=== PATIENT | male | born 1980 | race Caucasian/White ===

== ENCOUNTER 2022-08-11 15:25 | Emergency (ER) | payer OTHER, SELFPAY ==
[2022-08-11 15:37] VITALS: BP 144/88; PULSE 74; RESP 20; TEMP 36.9; O2SAT 99; BMI 25.0
[2022-08-11 17:28] VITALS: BP 133/89; PULSE 60; RESP 16; O2SAT 98
--- NOTE | 2022-08-12 04:07 | ED_ITS ---
History of Present Illness General Chief Complaint: Epistaxis/Nosebleed Stated Complaint: nose bleed Time Seen by Provider: 08/11/22 17:15 History of Present Illness HPI Narrative: 41-year-old man presenting to the emergency department with recurrent bleeding every 4-5 hours from the left nare over the last 30 hours or so beginning upon waking Thursday morning. Is 2 weeks status post turbinate is shaving/reduction and sinus ballooning. Nasal packing was removed already on day 2. He says he was noted to have scab formation in the left upper outer in areas on week ago follow-up. Has not had a fever. Not really any pain though there is some burning sensation in outer left nares as noted. He is not short of breath not lightheaded. Just chewing for example something like crackers he will feel a pop and then things will start bleeding. Has managed to get bleeding generally under control on his own spraying Afrin and applying pressure. Bled again shortly before arrival here. Admits not feeling active bleeding by the time I am able to see him. No historical bleeding problems but he is beginning to wonder. Related Data Home Medications Medication Instructions Recorded Confirmed fluticasone propionate 50 1 spray intranasal BID PRN 08/11/22 08/11/22 mcg/actuation nasal spray,suspension Allergies Allergy/AdvReac Type Severity Reaction Status Date / Time No Known Drug Allergies Allergy Verified 08/11/22 15:41 Review of Systems Status of ROS: Reports: 6 or more systems reviewed and unremarkable except as noted in History and below PFSH PFSH Social History Smoking Status: Never smoker Do you use any of these nicotine containing products: None Second hand tobacco smoke exposure: No How often do you have a drink containing alcohol: 2-4 times a month How many standard drinks containing alcohol do you have on a typical day: 1 or 2 How often do you have six or more drinks on one occasion: Never AUDIT-C Alcohol total score: 2 Non-prescribed substance use: denies use Exam Narrative: Exam Narrative: Pleasant. NAD. Seems little concerned. There is blood staining of lips and chin and around the naris. Oropharynx is without evidence of active bleeding at this time. Right nares with some blood layering out inferiorly, small amount. Left nares with some scab formation in the upper outer nares but looks more like fresh clot. Some layering of blood in the inferior portion as well. Inferior medial turbinate with irregular tissue and hypervascularity. Not actively bleeding but clearly evidence of recent bleed in this nares. Cranial nerves 2- 12 intact. There is no stridor. Breathing easily. Is congested in the nasopharynx. Const: Vital Signs, click to edit/add: Vital Signs - 24 hr 08/11/22 15:37 08/11/22 17:28 Temperature 98.5 F Pulse Rate [Pulse Oximeter] 74 60 Respiratory Rate 20 16 Blood Pressure [Ri ght Upper Arm] 144/88 H 133/89 Pulse Oximetry 99 98 Oxygen Delivery Me thod Room Air Room Air Documenting provider has reviewed patient's vital signs: yes Course Vital Signs Vital signs: Initial Vital Signs Temperature 98.5 F 08/11/22 15:37 Temperature Source Temporal Artery Scan 08/11/22 15:37 Pulse Rate 74 08/11/22 15:37 Respiratory Rate 20 08/11/22 15:37 Blood Pressure 144/88 H 08/11/22 15:37 Blood Pressure Mean 106 08/11/22 15:37 Blood Pressure Position Sitting 08/11/22 15:37 Pulse Oximetry 99 08/11/22 15:37 Oxygen Delivery Method 08/11/22 15:37 Vital Signs Temperature 98.5 F 08/11/22 15:37 Pulse Rate 74 08/11/22 15:37 Respiratory Rate 20 08/11/22 15:37 Blood Pressure 144/88 H 08/11/22 15:37 Pulse Oximetry 99 08/11/22 15:37 Oxygen Delivery Method 08/11/22 15:37 Temperature 98.5 F 08/11/22 15:37 Pulse Rate 60 08/11/22 17:28 Respiratory Rate 16 08/11/22 17:28 Blood Pressure 133/89 08/11/22 17:28 Pulse Oximetry 98 08/11/22 17:28 Oxygen Delivery Method 08/11/22 17:28 MDM - Epistaxis MDM Narrative Medical decision making narrative: Was able to reach PA on-call for [facility] where Mr. Ramirez had his procedure. Appeared to be familiar with this case. Approved placement of a Merocel packing. Karlos understandably would like some more definitive treatment here. I did discuss use of cocaine for anesthesia and vaso constriction with consideration of cautery though I do not think that this, in the setting of recent surgery, would be as certain to control recurrent bleed as packing. Bleeding did recur again heavily during time in the ER. Placed Merocel packing without notable difficulty. [place] like though a rather rough placement as if scraping against some bone. Karlos tolerated this well though. Bleeding was quickly controlled monitored without recurrent See patient discharge plan Discharge Plan Discharge Clinical Impression: Epistaxis, Post-op bleeding Patient Disposition: Home w/ Parent or Adult Condition: Improved Additional Instructions: Please call to your ENT provider to arrange followup late this week. If begins to recur apply pressure. If can not get it stopped in an hour, return to the emergency department. Take antibiotics until packing is pulled. Amoxicillin from [facility]. Prescriptions: No Action fluticasone propionate 50 mcg/actuation spray,suspension 1 spray INTRANASAL BID PRN Follow Up/Referrals: Ramón Dalton MD [Primary Care Provider] - Stand Alone Forms: [employer] Info Instructions
== END 2022-08-11 19:59 | disposition home or self-care (01) ==
PROVIDERS: Emergency Provider Family Medicine; PCP Family Medicine
DX: J95.830 Postprocedural hemorrhage of a respiratory system organ or structure following a respiratory system procedure (principal)
CPT/HCPCS: 30901; 99283; 99284

== ENCOUNTER 2022-11-04 08:00 | Outpatient (RCR) | payer OTHER, SELFPAY | END 2023-03-04 23:59 | disposition home or self-care (01) | PROVIDERS: PCP Family Medicine; Visit Provider Dentist | DX: M54.12 Radiculopathy, cervical region (principal); M26.609 Unspecified temporomandibular joint disorder, unspecified side; M54.50 Low back pain, unspecified; Z74.09 Other reduced mobility; R29.3 Abnormal posture; Z51.89 Encounter for other specified aftercare | CPT/HCPCS: 97110; 97140; 97161 ==

== ENCOUNTER 2022-12-24 09:15 | Outpatient (RCR) | payer OTHER, SELFPAY | END 2023-03-23 15:30 | disposition home or self-care (01) | PROVIDERS: PCP Family Medicine; Visit Provider Family Medicine | DX: M53.3 Sacrococcygeal disorders, not elsewhere classified (principal); Z74.09 Other reduced mobility; R29.3 Abnormal posture; Z51.89 Encounter for other specified aftercare | CPT/HCPCS: 97110; 97140; 97161 ==

== ENCOUNTER 2023-12-19 10:54 | Emergency (ER) | payer OTHER, SELFPAY ==
[2023-12-19 11:01] VITALS: BP 130/84; PULSE 81; RESP 18; TEMP 37.4; O2SAT 98; BMI 24.6
--- NOTE | 2023-12-19 11:24 | ED_ITS ---
HPI - General Adult General Date Seen: 12/19/23 Chief complaint: Skin/Abscess/Foreign Body Stated complaint: right arm possible infection Time Seen by Provider: 12/19/23 11:24 History of Present Illness HPI narrative: 43-year-old male with a history of cervical radiculopathy, SI joint pain, depression, anxiety, history of chewing tobacco use, but no history of diabetes or immunosuppression. He presents to the ER today with concern for possible ongoing infection around his right elbow and a possible foreign body under the skin of his elbow. He was seen in the urgent care yesterday on 12/17. According to those records he rolled his ankle 2 weeks ago and scraped his right elbow on a cement surface which caused an open wound. It had been healing but then on the day prior to coming to the urgent care developed redness and pain around the scabbing area on his right elbow. He was unsure of his last tetanus so tetanus was updated in the urgent care yesterday. According to records he had a 2 cm x 1 cm oval scab with a 3-5 cm rim of surrounding erythema which is hot and tender to the touch with a streak going up the posterior humerus. He was put on cephalexin 500 mg p.o. b.i.d. for 7 days. He has noted ongoing redness today. No new fevers or chills. He notes a small irizarry area on the skin in the central area of the infected area just adjacent to his healing scab. He is concerned that there is probably a foreign body just below the skin there. He is not sure he was able to vigorously scrubbed the wound when it first occurred 2 weeks ago. Related Data Previous Rx's ?Medication ?Instructions ?Recorded escitalopram oxalate 20 mg tablet 20 mg PO QDAY #90 tabs 04/23/23 cephalexin 500 mg capsule 500 mg PO BID 7 days #14 caps 12/18/23 cephalexin 500 mg capsule 500 mg PO Q12H #14 caps 12/19/23 Allergies Allergy/AdvReac Type Severity Reaction Status Date / Time No Known Drug Allergies Allergy Verified 12/19/23 11:05 [facility] Medical History (Reviewed 12/18/23 @ 16:55 by Tomasa Childress, [employer] SALESPERSON, CERTIFIED INDOOR ENVIRONMENTALIST) History of ingrown nail ?Z87.2 - Personal history of diseases of the skin and subcutaneous tissue (ICD-10) Encounter for routine history and physical examination of adult ?Z00.00 - Encounter for general adult medical examination without abnormal findings (ICD-10) Social History (Updated 11/12/22 @ 11:27 by Susanna Putnam ~ [facility]) What is your current living situation?: I presently have a place to live Problems where you live: no known problems In the past 12 months, utilities in danger of being shut off: no In the past 12 mos, have been you worried that your food would run out before you had money to buy more?: never true In the past 12 mos, the food you bought just didn't last and you didn't have money to buy more?: never true Smoking Status: Never smoker Do you use any of these nicotine containing products: None Second hand tobacco smoke exposure: No How often do you have a drink containing alcohol: 2-4 times a month How many standard drinks containing alcohol do you have on a typical day: 1 or 2 How often do you have six or more drinks on one occasion: Never AUDIT-C Alcohol total score: 2 Non-prescribed substance use: denies use How often does anyone, including family, friends and others, physically hurt you : How often does anyone, including family, friends and others, insult or talk down to you: How often does anyone, including family, friends and others, threaten you with harm: How often does anyone, including family, friends and others, scream or curse at you: Little interest or pleasure in doing things: not at all Feeling down, depressed, or hopeless: several days Exam Narrative: Exam Narrative: Constitutional: Appears well-developed and well-nourished. Active. Non-toxic appearing. HENT: Head: Atraumatic. No signs of injury. Nose: No nasal discharge. Mouth/Throat: Mucous membranes are moist. Pharynx is normal. Tonsils symmetric. Uvula midline. Airway patent. Eyes: Conjunctivae normal and EOM are normal. Pupils are equal, round, and reactive to light. Right eye exhibits no discharge. Left eye exhibits no discharge. No icterus. Neck: Normal range of motion. Neck supple. No adenopathy. No stridor. Cardiovascular: Normal rate and regular rhythm. No murmur heard. No murmurs, rubs, or gallops. Brisk capillary refill Pulmonary/Chest: Effort normal. No stridor. No respiratory distress. No wheezes.No rhonchi. No rales. No retractions. Abdominal: Soft. Bowel sounds are normal. No distension. No mass. There is no tenderness. There is no rebound and no guarding. Musculoskeletal: Normal range of motion in his right shoulder, elbow, wrist.. No tenderness. No deformity. Neurological: Alert. Normal strength. No cranial nerve deficit or sensory deficit. Coordination normal. GCS eye subscore is 4. GCS verbal subscore is 5. GCS motor subscore is 6. Skin: Overall skin is pink, warm, well perfused with brisk capillary refill and good perfusion. He does have signs of an infection an abrasion on his right elbow and arm. On the dorsum of the right elbow there is a healing is area of scabbed skin that is roughly 1 x 3 cm in she size. Around this there is a 5 mm rim of fairly bright erythema. There is a 2 x 5 mm area of dark irizarry skin just adjacent to the middle portion of the oval scab that could be suspicious for a retained foreign body in the superficial layers of the skin. No palpable fluctuance. No crepitus. No gas in the soft tissue. No abscess. I do not feel any fluid to suggest an olecranon bursitis. No crepitus suggest underlying olecranon or ulna or elbow bone fracture. There is a small tender all of subtle erythema suggestive of ascending lymphangitis spreading proximally from the wound which extends about 8-10 cm up the posterior medial arm. He had been marked in the urgent care yesterday and I do not see signs of redness spreading beyond the previous pawel. No palpable nodularity. No axillary adenopathy. Normal range of motion of the elbow. Normal pronation and supination of the forearm. Const: Vital Signs, click to edit/add: Vital Signs - 24 hr 12/19/23 11:01 Temperature 99.4 F Pulse Rate [Right Pulse Oximeter] 81 Respiratory Rate 18 Blood Pressure [Ri ght Upper Arm] 130/84 Pulse Oximetry 98 Oxygen Delivery Me thod Room Air Course Course ED Course: History and physical performed ER bed 1. Discussed options for the patient which would include continue on current antibiotics as currently he is doing, with the potential for a foreign body we could consider x-ray to look for radiopaque foreign body, ultrasound to look for organic foreign body, empiric incision to explore for foreign body without imaging . We elected to go ahead with ultrasound since it would be more sensitive for a organic foreign body than x-ray. I performed a bedside ultrasound. Images are saved to the ultrasound/digital hard drive. Procedure: Soft tissue ultrasound Indication: Right elbow wound with infection, concern for foreign body. Using the high-frequency linear array probe set to the small part setting we did evaluate the area. I do not see any visible foreign body or fluid collection to suggest abscess or bursitis. There does appear to be a shadowing area corresponding to the irizarry area of skin which I think does indicate a very superficial foreign body. I am not able to clearly see the foreign body but that may be because the foreign body is just at the interface of the skin and the gel. 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 Images saved to the hard drive. Impression: Positive for foreign body in the soft tissue Procedure: Incision and foreign body removal. Verbal consent obtained from the patient. Sterile prepped using Betadine. Local anesthesia using infiltration of 2 mL of 1% lidocaine with epinephrine. Good anesthesia achieved. Using 11 blade scalpel we made a superficial in the skin in the area of the irizarry skin. We encountered some gritty material, the foreign body. This was removed with a scalpel and forceps. After this there was no evidence for residual foreign body. We did not encounter any pus pocket or abscess or other fluid drainage during this procedure. Foreign body appears to be removed in its entirety. No complications noted. Vital Signs Vital signs: Initial Vital Signs Temperature 99.4 F 12/19/23 11:01 Temperature Source Temporal Artery Scan 12/19/23 11:01 Pulse Rate 81 12/19/23 11:01 Pulse Rhythm Regular 12/19/23 11:01 Respiratory Rate 18 12/19/23 11:01 Blood Pressure 130/84 12/19/23 11:01 Blood Pressure Mean 99 12/19/23 11:01 Blood Pressure Position Sitting 12/19/23 11:01 Pulse Oximetry 98 12/19/23 11:01 Oxygen Delivery Method Room Air 12/19/23 11:01 Vital Signs Temperature 99.4 F 12/19/23 11:01 Pulse Rate 81 12/19/23 11:01 Respiratory Rate 18 12/19/23 11:01 Blood Pressure 130/84 12/19/23 11:01 Pulse Oximetry 98 12/19/23 11:01 Oxygen Delivery Method Room Air 12/19/23 11:01 Temperature 99.4 F 12/19/23 11:01 Pulse Rate 81 12/19/23 11:01 Respiratory Rate 18 12/19/23 11:01 Blood Pressure 130/84 12/19/23 11:01 Pulse Oximetry 98 12/19/23 11:01 Oxygen Delivery Method Room Air 12/19/23 11:01 Medical Decision Making MDM Narrative Medical decision making narrative: This patient presents for evaluation of skin redness stemming from a scabbed/healing area on his right dorsal elbow. He actually 1st injured his elbow 2 weeks ago when he fell while rollerblading. It had been healing for about 10 days and then developed early signs of infection about 3 days ago. He now has a rim of erythema around the scab and a small tender all of ascending lymphangitis moving up his upper arm. He is hemodynamically stable, afebrile, well-appearing. No signs of sepsis and shock. He was seen in the urgent care yesterday and started on cephalexin and really has not worsened since then. However he was concerned about foreign body. On my physical exam and ultrasound I do think a foreign body was present so we went ahead with incision and removal. We did remove a small amount of gritty material (possibly sand that had been ground into the wound?). The history, physical exam is consistent with cellulitis. There do not appear at this time to be any complication of cellulitis including abscess, necrotizing fascitis, lymphangitis, lymphadenitis, osteomyelitis, sepsis, or shock. The patient is not immunosuppressed or diabetic. Supportive outpatient management is indicated with antibiotics. He was put on cephalexin 500 b.i.d. yesterday. I feel that he needs a q.i.d. dosing pattern. I sent a prescription for an extra b.i.d. cephalexin prescription to total 4 times daily. The patient is instructed to follow-up with primary care physician to ensure no progression and rapid resolution and given precautions to return if high fever, spread greater than 2cm outside of the marked area, worsening pain, vomiting or any other worsening. Questions answered and return precautions reviewed. Discharge Plan Discharge Clinical Impression: Cellulitis of right elbow, Foreign body (FB) in soft tissue Patient Disposition: Home, Self-Care Condition: Stable Instructions: Cellulitis (ED) Additional Instructions: As we discussed, you need to take your antibiotics - cephalexin 4 times daily for a week. Please fill the extra prescription to make sure you have enough of the antibiotic to take it 4 times daily. Monitor the infection carefully. If you are having worsening redness, worsening chills or high fevers, weakness, or any other problems, please come back to ER right away to be rechecked. It may take a few more days for the current redness to start to fade away. In however if your not showing signs of improvement by Thursday or Thursday, please come back to the ER or recheck with your doctor. Prescriptions: New cephalexin 500 mg capsule 500 mg PO Q12H Qty: 14 0RF Rx Instructions: Note to pharmacist. this patient received a prescription for cephalexin b.i.d. yesterday. The patient needs cephalexin 4 times daily. This prescription, combined with the prior, will achieve the appropriate dose. Total dose of cephalexin will be 500 mg q.i.d. for 7 days No Action escitalopram oxalate 20 mg tablet 20 mg PO QDAY Qty: 90 3RF cephalexin 500 mg capsule 500 mg PO BID 7 Days Qty: 14 0RF Follow Up/Referrals: Ramón Dalton MD [Primary Care Provider] - Stand Alone Forms: [employer] Info Instructions
== END 2023-12-19 12:24 | disposition home or self-care (01) ==
PROVIDERS: Emergency Provider Emergency Medicine; PCP Family Medicine
DX: M79.5 Residual foreign body in soft tissue (principal); L03.113 Cellulitis of right upper limb
CPT/HCPCS: 10120; 76604; 76705; 93308; 99282; 99283

== ENCOUNTER 2024-07-29 08:50 | Outpatient (CLI) | payer OTHER, SELFPAY | END 2024-07-29 08:51 | disposition home or self-care (01) | LOC: NFLDREF 07-31 17:13 | PROVIDERS: PCP Family Medicine; Referring Provider Family Medicine; Visit Provider Family Medicine | DX: E78.5 Hyperlipidemia, unspecified (principal); Z13.9 Encounter for screening, unspecified | CPT/HCPCS: 80053; 80061 ==